=== PATIENT | female | born 1940 | race Caucasian/White ===

== ENCOUNTER 2022-10-11 13:10 | Inpatient (IN) | payer MEDICARE, OTHER ==
[~2022-10-11] VITALS: Ht 160 cm; Wt 49.0 kg
--- NOTE | 2022-10-11 13:25 | NUR ---
at bedside for eval
--- NOTE | 2022-10-11 13:55 | NUR ---
PT COMES FORM 4 SEAS[facility] NURISNG HOME. A/O X0 ARMEINAN/MACEDONIAN SPEAKING. BREATHING EVEN AND UNLABORED 95% ON ROOM AIR. C/O: MORE ALTERED THAN USUAL, MORE AGITATED. VITALS: HR:63 132/99 94% o2sat. bed locked in lowest postion high folwers side rails up blankets provided
--- NOTE | 2022-10-11 14:00 | NUR ---
20g rac 22g left hand blood drawn and sent to lab
[2022-10-11 14:05] LABS: BASOPHILS # (AUTO) 0.1 K/uL (0.0-0.2); BASOPHILS % (AUTO) 0.8 % (0.0-2.0); EOSINOPHILS % (AUTO) 1.4 % (0.0-6.0); HEMATOCRIT 40 % (33-45); LYMPHOCYTES # (AUTO) 2.2 K/uL (0.8-4.8); LYMPHOCYTES % (AUTO) 25.2 % (20.0-44.0); MEAN CORPUSCULAR HGB CONC 32 g/dl (31.0-36.0); MEAN CORPUSCULAR VOLUME 90 fL (82-100); MONOCYTES # (AUTO) 0.4 K/uL (0.1-1.30); MONOCYTES % (AUTO) 4.8 % (2.0-12.0); NEUTROPHILS % (AUTO) 67.8 % (43.0-81.0); PLATELET COUNT (AUTO) 467 K/uL (150-450); RED BLOOD CELL COUNT(AUTO) 4.47 MIL/uL (4.0-5.2); WHITE BLOOD COUNT (AUTO) 8.8 K/uL (4.3-11.0)
[2022-10-11 14:16] LABS: CALCIUM, SERUM 10.3 mg/dL (8.5-10.1); CARBON DIOXIDE 23 mmol/L (21-32); CHLORIDE 102 mmol/L (98-107); GLUCOSE 98 mg/dL (74-106); POTASSIUM 3.4 mmol/L (3.5-5.1); SODIUM SERUM 142 mmol/L (136-145); UREA NITROGEN, BLOOD 26 mg/dL (7-18)
[2022-10-11 14:26] LABS: BILIRUBIN,URINE NEGATIVE (NEGATIVE); COLOR,URINE YELLOW (YELLOW); LEUKOCYTE ESTERASE ,URINE NEGATIVE (NEGATIVE); NITRITE, URINE NEGATIVE (NEGATIVE); PH,URINE 6.5 (5.0-8.0); PROTEIN,URINE TRACE mg/dl (NEGATIVE); UGLUCOSE NEGATIVE (NEGATIVE)
[2022-10-11 14:31] LABS: ALANINE AMINOTRANSFERASE 16 U/L (12-78); ALBUMIN 3.4 g/dL (3.4-5.0); ALKALINE PHOSPHATASE 238 U/L (46-116); ASPARTATE AMINOTRANSFERASE 16 U/L (15-37); BILIRUBIN,DIRECT 0.2 mg/dL (0.0-0.2); BILIRUBIN,TOTAL 0.8 mg/dL (0.2-1.0); TOTAL PROTEIN, SERUM 7.9 g/dL (6.4-8.2)
[2022-10-11 14:44] LABS: BACTERIA,URINE Few /HPF (None Seen); MUCUS,URINE Few /LPF (None Seen); RBC,URINE 0-2 /HPF (0-2); SQUAMOUS EPITHELIAL CELL,UR None Seen /HPF (None Seen)
[2022-10-11] MEDS ORDERED: IV NS 0.9% 1,000 ML BAG IV ONE ×2 (15:00→15:30)
[2022-10-11] MEDS ORDERED: VANCOMYCIN 1 GM in IV D5W 250 ML IV ONE (15:30)
[2022-10-11] MEDS ORDERED: PIPERACILLIN /TAZOBACTAM 3.375 G in IV D5W 50 ML IV ONE (15:30)
--- NOTE | 2022-10-11 17:16 | NUR ---
DERIVATIVES TRADER RIYA Rodriges [phone]
[2022-10-11] MEDS ORDERED: ASCO-352 PO (17:32)
[2022-10-11] MEDS ORDERED: BISA10SU11 RC (17:32)
[2022-10-11] MEDS ORDERED: QUET25TA PO (17:32)
[2022-10-11] MEDS ORDERED: AMIN30LI2 PO (17:32)
[2022-10-11] MEDS ORDERED: MAGN400O6 PO (17:32)
[2022-10-11] MEDS ORDERED: HYDR-4303 PO (17:32)
[2022-10-11] MEDS ORDERED: NA P133E RC (17:32)
[2022-10-11] MEDS ORDERED: METO25TA20 PO (17:32)
[2022-10-11] MEDS ORDERED: MEMA10TA56 PO (17:32)
[2022-10-11] MEDS ORDERED: MULT-447 PO (17:32)
[2022-10-11] MEDS ORDERED: ZINC50TA69 PO (17:33)
[2022-10-11] MEDS ORDERED: SENN-261 PO (17:33)
[2022-10-11] MEDS ORDERED: ACET-868 PO (17:33)
--- NOTE | 2022-10-11 18:35 | NUR ---
[facility] paged
[2022-10-11] MEDS ORDERED: HYDROCODONE/APAP 5/325MG TABLET PO PRN (19:00)
[2022-10-11] MEDS ORDERED: MAGNESIUM HYDROXIDE 30 ML UDC PO PRN ×2 (19:00)
[2022-10-11] MEDS: POTASSIUM CL. PREMIX PERIPHER. 50 ML IV SCH ×3 (19:00→23:59)
[2022-10-11] MEDS: methylPREDNISolone SOD SUCC 125 MG/2ML VIAL IV SCH ×3 (19:00→21:41)
[2022-10-11] MEDS ORDERED: NA PHOS,M-B/NA PHOS,DI-BA 1 EA ENEMA RC PRN (19:00)
[2022-10-11] MEDS ORDERED: ONDANSETRON HCL/PF 4 MG/2 ML VIAL IVP PRN (19:00)
[2022-10-11] MEDS ORDERED: ACETAMINOPHEN 325 MG TABLET PO PRN ×2 (19:00)
[2022-10-11] MEDS ORDERED: Z GUARD REMEDY 4 OZ OINT TP PRN (19:00)
[2022-10-11] MEDS ORDERED: BISACODYL SUPP (10 MG) 10 MG/SUPP.RECT SUPP.RECT RC PRN (19:00)
[2022-10-11] MEDS ORDERED: MAG HYDROX/AL HYDROX/SIMETH 30 ML UDC PO PRN (19:00)
--- NOTE | 2022-10-11 19:41 | NUR ---
HANDOFF REPORT GIVEN TO RACHEL GUERRA FOR INPATIENT SERVICES
[2022-10-11 20:10] VITALS: BP 146/81
--- NOTE | 2022-10-11 20:10 | NUR ---
HYDROELECTRIC MECHANICSUPERVISOR BLOOD DONOR RECRUITERS NOTES SR-[id number] ON TELE MONITOR.RECEIVED NEW ADMIT FROM ER PER JAY AT THIS TIME,[place] [address] [place] [address],SENT TO EMERGENCY ROOM VIA AMBULANCE FOR LOW O2 SAT.ALERT,A/O X1,CONFUSED,MOHAWK SPEAKING,WITH SALINE LOCK RIGHT AC #20 INTACT AND PATENT,SALINE LOCK LEFT HAND #22 INTACT AND PATENT SECURED WITH KERLIX.NO SKIN ISSUES,ABLE TO REPOSITION SELF.TRYING TO PULL OUT SALINE LOCK,ORDER OBTAINED FOR RESTRAINTS FROM NIGHT HOSPITALIST DEMARCO STALLINGS.WILL CONTINUE TO MONITOR STATUS.CALL LIGHT IN REACH,NEEDS ANTICIPATED.
[2022-10-11 21:00] VITALS: BP 136/95
[2022-10-11] MEDS: IV NS 0.9% 1,000 ML IV PRN (21:02)
--- NOTE | 2022-10-11 21:02 | NUR ---
WAREHOUSE FOREMAN NOTES STARTED ON IVF NS AT 75ML/HR RATE INFUSING ON RIGHT AC SALINE LOCK VIA IV PUMP.
--- NOTE | 2022-10-11 21:33 | NUR ---
DIRECTOR FINANCIAL PLANNING NOTES K LEVEL 3.4,POTASSIUM 10MEQ FIRST BAG IV STARTED INFUSING ON RIGHT ARM VIA IV PUMP
[2022-10-11] MEDS: ENOXAPARIN SODIUM 40 MG/0.4 ML DISP.SYRIN SQ SCH (21:36)
[2022-10-11] MEDS: SENNOSIDES 8.6 MG TABLET PO SCH (21:36)
--- NOTE | 2022-10-11 22:52 | NUR ---
RN ORTHO NOTES SECOND BAG OF POTASSIUM 10MEQ HUNG
[2022-10-12] VITALS: BP 146/81
[2022-10-12] MEDS ORDERED: POTASSIUM CL. PREMIX PERIPHER. 50 ML ONE (01:35)
[2022-10-12] MEDS: POTASSIUM CL. PREMIX PERIPHER. 50 ML IV SCH (01:36)
[2022-10-12 04:00] VITALS: BP 116/71
[2022-10-12 05:54] LABS: BASOPHILS % (AUTO) 0.3 % (0.0-2.0); EOSINOPHILS % (AUTO) 0.1 % (0.0-6.0); HEMATOCRIT 34 % (33-45); HEMOGLOBIN 10.9 g/dL (11.5-14.8); LYMPHOCYTES # (AUTO) 0.4 K/uL (0.8-4.8); LYMPHOCYTES % (AUTO) 4.5 % (20.0-44.0); MEAN CORPUSCULAR HGB CONC 33 g/dl (31.0-36.0); MEAN CORPUSCULAR VOLUME 91 fL (82-100); MONOCYTES % (AUTO) 0.5 % (2.0-12.0); NEUTROPHILS # (AUTO) 7.5 K/uL (1.8-8.9); NEUTROPHILS % (AUTO) 94.6 % (43.0-81.0); PLATELET COUNT (AUTO) 389 K/uL (150-450); RED BLOOD CELL COUNT(AUTO) 3.69 MIL/uL (4.0-5.2)
[2022-10-12 06:21] LABS: CALCIUM, SERUM 9.4 mg/dL (8.5-10.1); CARBON DIOXIDE 25 mmol/L (21-32); CHLORIDE 108 mmol/L (98-107); CREATININE 0.8 mg/dL (0.6-1.3); GLUCOSE 151 mg/dL (74-106); PHOSPHORUS 3.7 mg/dL (2.5-4.9); POTASSIUM 4.7 mmol/L (3.5-5.1); SODIUM SERUM 141 mmol/L (136-145); UREA NITROGEN, BLOOD 22 mg/dL (7-18)
[2022-10-12 07:00] VITALS: BP 119/72
--- NOTE | 2022-10-12 07:30 | NUR ---
field applications specialist Opening Note Received Pt care from television technician. Pt A/O*1 confused, Italian speaker, follow commands, and no sign of distress. No indication of pain at this moment. Skin warm, dry and intact. Restraints for upper arms checked for skin and circulation; intact. IV right AC 20G with NS running at 75mL/hr and left hand 22G SL. Respiration unlabored, even, and clear lung sounds. Pt is on RA. surveillance monitor sinus rhythm at 89bpm. Bowel sounds present all quadrants. hand produce associate equally strong. CSM intact all extremities. All safety precaution in place. Bed in low position and locked. Call light and table in reach. Side rails up*3. Will continue monitoring pt.
--- NOTE | 2022-10-12 07:30 | NUR ---
MARI Wilkinson Note Unable to complete suicide assessment due to patient being A/o*1 and confused at this moment. All safety measure in place and pt is on bilateral soft wrist restraints. Will continue to assess per unit protocol. Addendum: 10/12/22 at 1712 by LA NENA SALAZAR RN Correction: MARI Galvan
--- NOTE | 2022-10-12 07:40 | NUR ---
BRAND RECORDER NOTES ON BED CALM AND QUIET,ALL DUE MEDS ADMINISTERED.RESTRAINTS IN PLACE.IN NO ACUTE DISTRESS.ENDORSED TO FINN GUERRA FOR RICHIE.
[2022-10-12] MEDS ORDERED: PROSTAT (PYXIS) 30 ML UDC PO SCH (09:00)
[2022-10-12] MEDS: QUETIAPINE FUMARATE 25 MG TABLET PO SCH (09:37)
[2022-10-12] MEDS: METOPROLOL TARTRATE 25 MG TABLET PO SCH ×2 (09:37→17:22)
[2022-10-12] MEDS: ASCORBIC ACID 500 MG TABLET PO SCH (09:38)
[2022-10-12] MEDS: MULTIVIT W/MINERALS 1 TAB TABLET PO SCH (09:38)
[2022-10-12] MEDS: ZINC SULFATE 220 MG CAPSULE PO SCH (09:38)
[2022-10-12] MEDS: MEMANTINE HCL 5 MG TABLET PO SCH (09:39)
[2022-10-12] MEDS: methylPREDNISolone SOD SUCC 125 MG/2ML VIAL IV SCH (09:50)
--- NOTE | 2022-10-12 10:15 | NUR ---
director human services Note IV Right AC 20G leaking IV fluid from the IV site, removed at 1015. IV site no redness and no swelling. IV fluid continues at the left wrist 22G. Will Continue to monitor.
[2022-10-12] MEDS: PROSOURCE / PROSTAT (PYXIS) 30 ML UDC PO SCH (10:26)
[2022-10-12] MEDS ORDERED: LORAZEPAM INJ 2 MG/ML VIAL IV PRN (13:30)
[2022-10-12] MEDS: predniSONE 20 MG TABLET PO SCH ×2 (13:37→17:22)
--- NOTE | 2022-10-12 13:37 | NUR ---
saw edge fuser circular Note Pt was screaming and in distress. Attempted to provide comfort and assess for pain. Nothing identified. Notified MD for the distress. Ativan 0.5mg IVP was ordered and administered. Will continue monitoring.
--- NOTE | 2022-10-12 15:00 | NUR ---
graduate teaching assistant Note Followup call to [facility] for DNR paperwork. Spoken with Marycarmen. Provide facility fax number. Will wait for their fax.
[2022-10-12 16:00] VITALS: BP 137/86
--- NOTE | 2022-10-12 16:41 | NUR ---
RN NOTES: PT IV ACCESS AT L HAND #22 HAS S/S OF INFILTRATION, REDNESS AND SWELLING AT THE SITE. REMOVED IV ACCESS, APPLIED WARM COMPRESS, WILL CONT TO MONITOR. MARI NETTLES STARTED NEW IV ACCESS @ R WRIST # 22, PATENT AND FLUSHES WELL, WILL CONT IV FLUID INFUSION PER ORDER.
[2022-10-12] MEDS: IV NS 0.9% 1,000 ML IV PRN (17:27)
[2022-10-12] MEDS: ENSURE ENLIVE 237 ML LIQUID (VANILLA) PO SCH (17:28)
[2022-10-12] MEDS: ENOXAPARIN SODIUM 40 MG/0.4 ML DISP.SYRIN SQ SCH (18:31)
--- NOTE | 2022-10-12 18:45 | NUR ---
junior net developer Closing Note Pt A/O*1 confused, French speaker, follow commands, and no sign of distress. No indication of pain at this moment. Skin warm, dry and intact. Left hand is swelling and slightly red, applied warm compress. Restraints for upper arms checked for skin and circulation; intact. IV right wrist 22G with NS running at 75mL/hr. IV site dry and intact, covered by bandage. Respiration unlabored, even, and clear lung sounds. Pt is on RA at 94% SpO2. ekg monitor tech sinus rhythm at 82bpm. Bowel movement once and voided 2 times during shift. hand applied psychology professor equally strong. CSM intact all extremities. All safety precaution in place. Bed in low position and locked. Call light and table in reach. Side rails up*3. Endorsed pt care to fast food shift lead.
[2022-10-12 19:00] VITALS: BP 136/68
[2022-10-12] MEDS ORDERED: CEFTRIAXONE 1 G in IV D5W 50 ML IV SCH (19:00)
--- NOTE | 2022-10-12 19:30 | NUR ---
RESIDENT ASSISTANT NOTES RECEIVED ON BED APPEARS SLEEPY DUE TO ATIVAN GIVEN BY DAY NURSE.NOTED IV SITE RIGHT ARM INFILTRATED,IV STOP FOR NOW.RESTRAINTS RELEASED ON RIGHT ARM,LEFT ARM RESTRAINTS IN PLACE.FALL PRECAUTION OBSERVED,BED ALARM,BED ON LOWEST POSITION AND LOCKED.DNR STATUS.WILL CONTINUE TO MONITOR STATUS.
[2022-10-12 20:00] VITALS: BP 136/68
[2022-10-12] MEDS: SENNOSIDES 8.6 MG TABLET PO SCH (22:00)
--- NOTE | 2022-10-12 23:30 | NUR ---
SAFETY DEPOSIT BOXES CUSTODIAN NOTES ATTEMPTED TO INSERT NEW SALINE LOCK BUT UNSUCCESSFUL,VERY HARD STICK.PROBABLY NEEDS MIDLINE.ENDORSED TO DOLORES GUERRA FOR RICHIE
--- NOTE | 2022-10-12 23:39 | NUR ---
noc rn note Report received from MARI Villa for continuity of care. Received patient with eyes closed, easy to arouse. Bila. soft wrsit restraints in place. no s/s of apparent distress on room air. not exhibiting pain via flacc. Patient has no IV access at this time, as endorsed by MARI Villa. Patient hard stick. will continue with the plan of care for patient.
[2022-10-13] VITALS: BP 142/84
[2022-10-13 04:00] VITALS: BP 153/86
[2022-10-13 07:00] VITALS: BP 131/75
--- NOTE | 2022-10-13 07:45 | NUR ---
dusting and brushing machine operator Opening Note Received pt care from director of operations home health. Pt A/O*1, confused, Lao speaking. No signs of distress at this moment. Follow commands. Lying on bed semi-kat position. Pt is on RA at 98%SpO2. Respiration unlabored, regular and even. Lung sounds clear. case monitor captured SR at 98bpm, also read occasional 1st degree AV block and PACs per case monitor. Bowel sounds present all quadrants. Hand sample taker operator strong. CSM intact all extremities. Checked restraints per hospital protocol. IV left AC 22G dry, intact and patent, running NC at 75mL/h. Skin dry and intact. All Safety Precaution in place. Bed in low and locked, call lights and table in reach, side rails up*3. Will continue monitoring.
[2022-10-13] MEDS ORDERED: PRED50TA PO (08:46)
[2022-10-13] MEDS: MULTIVIT W/MINERALS 1 TAB TABLET PO SCH (09:47)
[2022-10-13] MEDS: MEMANTINE HCL 5 MG TABLET PO SCH (09:47)
[2022-10-13] MEDS: METOPROLOL TARTRATE 25 MG TABLET PO SCH (09:48)
[2022-10-13] MEDS: ZINC SULFATE 220 MG CAPSULE PO SCH (09:48)
[2022-10-13] MEDS: ASCORBIC ACID 500 MG TABLET PO SCH (09:48)
[2022-10-13] MEDS: QUETIAPINE FUMARATE 25 MG TABLET PO SCH (09:48)
[2022-10-13] MEDS: predniSONE 20 MG TABLET PO SCH ×2 (09:49→13:28)
[2022-10-13] MEDS: ENSURE ENLIVE 237 ML LIQUID (VANILLA) PO SCH (09:50)
[2022-10-13] MEDS: PROSOURCE / PROSTAT (PYXIS) 30 ML UDC PO SCH (09:56)
[2022-10-13 12:00] VITALS: BP 121/73
--- NOTE | 2022-10-13 15:45 | NUR ---
agricultural specialist Discharging Note Pt is medically stable for discharge per MD order. A/O*1, confused, Sami speaking. No signs of distress at this moment. Respiration unlabored, regular and even on RA. Discharge paperwork and belonging check list were witnessed and signed by 2RNs. Discontinued IV line. Report was given to receiving facility nurse Brianne at 1430.youth nutritional monitor and ID band removed. Pt left unit via gurney with EMT from [facility]. Gave medical packet and endorsed care to EMT.
== END 2022-10-13 16:02 | DRG 190 ==
LOC: ER 13:15 → TELE 19:19
PROVIDERS: ADMIT Internal Medicine; ATTEND Internal Medicine
DX: J44.1 Chronic obstructive pulmonary disease with (acute) exacerbation (principal); G93.41 Metabolic encephalopathy; J96.01 Acute respiratory failure with hypoxia; N17.0 Acute kidney failure with tubular necrosis; E87.20 Acidosis, unspecified; F03.90 Unspecified dementia, unspecified severity, without behavioral disturbance, psychotic disturbance, mood disturbance, and anxiety; Z20.822 Contact with and (suspected) exposure to COVID-19; F20.9 Schizophrenia, unspecified; I10 Essential (primary) hypertension; E11.9 Type 2 diabetes mellitus without complications; F41.9 Anxiety disorder, unspecified; Z79.899 Other long term (current) drug therapy; E87.6 Hypokalemia
CPT/HCPCS: 36415; 71045-TC; 80048-TC; 80076-TC; 81001; 83605-TC; 83735-TC; 83880; 84100-TC; 84484-TC; 85025-TC; 87040-TC; 87081-TC; 87086-TC; A4223; C9803; G0378; J0696; J1650; J2060; J2543; J2930; J3370; J3480; J7030; J7060